=== PATIENT | male | born 1985 | race Caucasian/White ===

== ENCOUNTER 2018-10-04 18:32 | Emergency (ER) | payer SELFPAY ==
--- NOTE | 2018-10-04 19:04 | ED Physician Documentation ---
Upper Respiratory Symptoms - HISTORIAN Historian: patient - HPI Stated Complaint: cough Chief Complaint: Cough/ Upper Respiratory Additional Information: Patient presents to ED with a 12 hour history of cough, bodyaches and sore t hroat. He denies fever. 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 Onset: hours (12) Duration: intermittent episodes Context: denies: recent foreign travel Associated Symptoms: chills, sore throat, productive cough, hurts to breathe Worsened by Deep Breath: Yes Further Comments: no - ROS CONST/EYES: denies: weakness CVS/RESP: denies: chest pain, shortness of breath LYMPH: denies: leg swelling, ankle swelling GI/: denies: vomiting, nausea NEURO/PSYCH: denies: dizziness MS/SKIN: muscle aches - PAST HX Lung Disease: none PE Risk Factors: none Surgeries/Procedures: none Allergies/Adverse Reactions: Allergies Allergy/AdvReac Type Severity Reaction Status Date / Time No Known Allergies Allergy Verified 10/04/18 18:57 Home Medications: Ambulatory Orders Medication Instructions Recorded Azithromycin 250 mg PO DIRECTED #6 tablet 10/04/18 Omeprazole 20 mg PO PRN PRN 10/04/18 predniSONE [Deltasone] 20 mg PO DIRECTED #10 tablet 10/04/18 - SOCIAL HX Smoking History: non-smoker Alcohol Use: none Drug Use: none - FAMILY HX Family History: none - VITAL SIGNS Vital Signs: Vital Signs Temp Pulse Resp BP Pulse Ox 98.1 F 81 18 128/81 99 10/04/18 18:32 10/04/18 18:32 10/04/18 18:32 10/04/18 18:32 10/04/18 18:32 - REVIEWED ASSESSMENTS Nursing Assessment Reviewed: Yes Vitals Reviewed: Yes ED Results Lab/Radiology - Lab Results Lab Results: Rapid strep - negative - Orders Orders: ED Orders Category Date Time Status Rapid Strep [GRP A STREP SCREEN] Stat Lab 10/04/18 Ordered Lidocaine 1% 5ml(IM or SUTURE) [Xylocaine] Med 10/04/18 19:13 Discontinued 5 mg IJ NOW ONE cefTRIAXone SODIUM [Rocephin] Med 10/04/18 19:14 Discontinued 500 mg IM NOW ONE methylPREDNISolone SOD SUCC [Solu-MEDROL] Med 10/04/18 19:12 Discontinued 125 mg IM NOW ONE Upper Respiratory Symptoms - EXAM General Appearance: no acute distress, alert EENT: nml ENT inspection, PERRL Neck: supple. No: lymphadenopathy Respiratory: no resp. distress, breath sounds nml Abdomen: non-tender CVS: reg rate & rhythm, heart sounds normal Skin: color nml, no rash, warm,dry Extremities: non-tender Neuro/Psych: oriented x3 Discharge Clincal Impression: Viral upper respiratory illness Prescriptions: Azithromycin 250 mg PO DIRECTED #6 tablet predniSONE [Deltasone] 20 mg PO DIRECTED #10 tablet Referrals: Primary Doctor,No [Primary Care Provider] - 2 Days Additional Instructions: 1. Start Prednisone and Azithromycin on 10/05/18 2. Tylenol and/or Ibuprofen as need for pain/fever 3. Follow up with PCP within 1 week 4. Return to ER with new or worsening symptoms. Condition: Stable Disposition: 01 HOME, SELF-CARE Decision to Admit: NO Date of Decison to Admit: 10/04/18 Decision Time: 19:19
[2018-10-04 19:07] VITALS: BP 128/81
[2018-10-04] MEDS ORDERED: methylPREDNISolone SOD SUCC 125 MG/2 ML VIAL IM ONE (19:12)
[2018-10-04] MEDS ORDERED: LIDOCAINE HCL 1% PF 50MG/5ML AMP (IM/SUTURE/PAIN CLINIC) IJ ONE (19:13)
== END 2018-10-04 19:25 | disposition home or self-care (01) ==
LOC: ED 18:32
DX: J06.9 Acute upper respiratory infection, unspecified (principal)
CPT/HCPCS: 87070; 87880; 96372; 99282; 99284; J0696; J2930